=== PATIENT | male | born 1990 | race Caucasian/White ===

== ENCOUNTER 2018-11-29 21:54 | Emergency (ER) | payer SELFPAY ==
[2018-11-29] MEDS ORDERED: Tetracaine HCl/PF 0.5% 4 ML Bottle EYEBOTH ONE (22:10)
[2018-11-29] MEDS ORDERED: Albuterol/Ipratropium 3.0-0.5 MG/3 ML Neb Soln NEB ONE (22:10)
[2018-11-29] MEDS ORDERED: methylPREDNISolone Sodium Succinate 125 MG/2 ML SDV IM ONE (22:11)
--- NOTE | 2018-11-29 22:20 | EDM.PDOC ---
ED HPI GENERAL MEDICAL PROBLEM - General Chief Complaint: ENT Problem Stated Complaint: Cough Time Seen by Provider: 11/29/18 21:57 Source of Information: Reports: Patient History Limitations: Reports: No Limitations - History of Present Illness INITIAL COMMENTS - FREE TEXT/NARRATIVE: HISTORY AND PHYSICAL: History of present illness: Patient is a 27-year-old male who presents to the ED today with concern of a cough 2 weeks. Patient states he does smoke about 1.5 packs of cigarettes a day and does admit to drinking daily. He states that he isn't having issues with getting his contacts out of his eyes and states that he lost his right contact. Patient states he knows his left contact is in but he has been unable to get them out. Patient states he has been pinching squeezing his eyes to try to get them out but started having pain so stopped doing this over the past day. Patient denies any other symptoms or concerns or any health history. Patient denies fever, chills, chest pain, shortness of breath. Denies headache, neck stiff ness, change in vision, syncope, or near syncope. Denies nausea, vomiting, abdominal pain, diarrhea, constipation, or dysuria. Has not noted any blood in urine or stool. Patient has been eating and drinking appropriately. Review of systems: As per history of present illness and below otherwise all systems reviewed and negative. Past medical history: As per history of present illness and as reviewed below otherwise noncontributory. Surgical history: As per history of present illness and as reviewed below otherwise noncontributory. Social history: See social history for further information Family history: As per history of present illness and as reviewed below otherwise noncontributory. Physical exam: General: Patient is alert, oriented, and in no acute distress. Patient sitting comfortably on exam table. HEENT: Visual acuity intact. Atraumatic, normocephalic, pupils equal and reactive bilaterally, negative for conjunctival pallor or scleral icterus but bilateral sclera are severely erythematous with multiple subconjunctival hemorrhages bilaterally, no corneal abrasions, there is no contact in the right eye but contact present in the left which was removed, no other foreign bodies of the eyes, mucous membranes moist, TMs normal bilaterally, throat clear, neck supple, nontender, trachea midline. No drooling or trismus noted. No meningeal signs. No hot potato voice noted. Lungs: Diffuse wheezing to auscultation throughout all lung hernandez, breath sounds equal bilaterally, chest nontender. Dry, tight spasmatic cough throughout exam. Heart: S1S2, regular rate and rhythm without overt murmur Abdomen: Soft, nondistended, nontender. Negative for masses or hepatosplenomegaly. Negative for costovertebral tenderness. Pelvis: Stable nontender. Genitourinary: Deferred. Rectal: Deferred. Skin: Intact, warm, dry. No lesions or rashes noted. Extremities: Atraumatic, negative for cords or calf pain. Neurovascular unremarkable. Neuro: Awake, alert, oriented. Cranial nerves II through XII unremarkable. Cerebellum unremarkable. Motor and sensory unremarkable throughout. Exam nonfocal. Notes: This importance for follow-up with a primary care provider. Voices understanding and is agreeable to plan of care. Denies any further questions or concerns at this time. Diagnostics: Influenza, Strep, CXR, Fluoroscene eye stain Therapeutics: Tetracaine ophthalmic, Solumedrol, Duoneb Prescription: Prednisone, Proair inhaler Impression: Tracheobronchitis Subconjunctival hemorrhages, bilateral Plan: 1. Take medication as prescribed. You can alternate ibuprofen and Tylenol as directed for pain and discomfort. 2. Follow-up with your primary care provider as discussed. Return to the ED as needed and as discussed. Definitive disposition and diagnosis as appropriate pending reevaluation and review of above. - Related Data Allergies Allergy/AdvReac Type Severity Reaction Status Date / Time No Known Allergies Allergy Verified 11/29/18 22:09 Home Meds: Home Meds . [No Known Home Meds] 11/29/18 [History] Past Medical History HEENT History: Reports: None Cardiovascular History: Reports: None Respiratory History: Reports: Asthma Gastrointestinal History: Reports: None Genitourinary History: Reports: None Musculoskeletal History: Reports: None Neurological History: Reports: None Psychiatric History: Reports: Anxiety, Depression Endocrine/Metabolic History: Reports: None Hematologic History: Reports: None Immunologic History: Reports: None Oncologic (Cancer) History: Reports: None Dermatologic History: Reports: None - Infectious Disease History Infectious Disease History: Reports: None - Past Surgical History Head Surgeries/Procedures: Reports: None GI Surgical History: Reports: Appendectomy Social & Family History - Tobacco Use Smoking Status *Q: Current Every Day Smoker Years of Tobacco use: 16 Packs/Tins Daily: 1.5 - Recreational Drug Use Recreational Drug Use: No ED ROS GENERAL - Review of Systems Review Of Systems: ROS reveals no pertinent complaints other than HPI. ED EXAM, GENERAL - Physical Exam Exam: See Below (See dictation) Course - Vital Signs Last Recorded V/S: Last Vital Signs Temp 97.1 F 11/29/18 22:07 Pulse 97 11/29/18 22:07 Resp 20 11/29/18 22:07 BP 146/84 H 11/29/18 22:07 Pulse Ox 99 11/29/18 22:07 - Orders/Labs/Meds Orders: Active Orders 24 hr Category Date Time Status Communication Order [RC] STAT Care 11/29/18 22:31 Active RT Aerosol Therapy [RC] ASDIRECTED Care 11/29/18 22:11 Active CULTURE STREP A CONFIRMATION [RM] Stat Lab 11/29/18 22:04 Results STREP SCRN A RAPID W CULT CONF [RM] Stat Lab 11/29/18 22:04 Results Meds: Medications Discontinued Medications Generic Name Dose Route Start Last Admin Trade Name Erica PRN Reason Stop Dose Admin Albuterol/Ipratropium 3 ml 11/29/18 22:10 11/29/18 22:15 Duoneb 3.0-0.5 Mg/3 Ml NEB 11/29/18 22:11 3 ml ONETIME ONE Administration Methylprednisolone Sodium Succinate 125 mg 11/29/18 22:11 11/29/18 22:15 Solu-Medrol IM 11/29/18 22:12 125 mg ONETIME ONE Administration Tetracaine HCl 1 ml 11/29/18 22:10 11/29/18 22:15 Tetracaine 0.5% Steri-Unit Radha EYEBOTH 11/29/18 22:11 4 drop ASDIRECTED ONE Administration Departure - Departure Time of Disposition: 23:34 Disposition: Home, Self-Care 01 Clinical Impression: Subconjunctival hemorrhage of both eyes, Tracheobronchitis - Discharge Information Referrals: PCP,None [Primary Care Provider] - Forms: ED Department Discharge Additional Instructions: The following information is given to patients seen in the emergency department who are being discharged to home. This information is to outline your options for follow-up care. We provide all patients seen in our emergency department with a follow-up referral. The need for follow-up, as well as the timing and circumstances, are variable depending upon the specifics of your emergency department visit. If you don't have a primary care physician on staff, we will provide you with a referral. We always advise you to contact your personal physician following an emergency department visit to inform them of the circumstance of the visit and for follow-up with them and/or the need for any referrals to a consulting specialist. The emergency department will also refer you to a specialist when appropriate. This referral assures that you have the opportunity for follow-up care with a specialist. All of these measure are taken in an effort to provide you with optimal care, which includes your follow-up. Under all circumstances we always encourage you to contact your private physician who remains a resource for coordinating your care. When calling for follow-up care, please make the office aware that this follow-up is from your recent emergency room visit. If for any reason you are refused follow-up, please contact the [facility] Emergency Department at and asked to speak to the emergency department charge nurse. [facility] [address] [place] [address] [address] 1. Take medication as prescribed. You can alternate ibuprofen and Tylenol as directed for pain and discomfort. 2. Follow-up with your primary care provider as discussed. Return to the ED as needed and as discussed. - My Orders Last 24 Hours: My Active Orders 11/29/18 22:04 CULTURE STREP A CONFIRMATION [RM] Stat STREP SCRN A RAPID W CULT CONF [RM] Stat 11/29/18 22:11 RT Aerosol Therapy [RC] ASDIRECTED 11/29/18 22:31 Communication Order [RC] STAT - Assessment/Plan Last 24 Hours: My Active Orders 11/29/18 22:04 CULTURE STREP A CONFIRMATION [RM] Stat STREP SCRN A RAPID W CULT CONF [RM] Stat 11/29/18 22:11 RT Aerosol Therapy [RC] ASDIRECTED 11/29/18 22:31 Communication Order [RC] STAT
--- NOTE | 2018-11-29 23:12 | CR ---
INDICATION: Shortness of breath; cough for 2 weeks TECHNIQUE: Chest 2 views. COMPARISON: None. FINDINGS: Cardiovascular and mediastinum: Heart size and vasculature are normal in caliber and appearance. Mediastinum is within normal limits. Lungs and pleural spaces: Lungs are clear. No sign of infiltrate or mass. No sign of pleural effusion. No pneumothorax. Bones and soft tissues: No significant findings. IMPRESSION: Unremarkable chest. Dictated by: Donte Delarosa MD @ 11/29/2018 23:11:34 (Electronically Signed)
== END 2018-11-29 23:42 | disposition home or self-care (01) ==
LOC: MW.ED 21:54
DX: J40 Bronchitis, not specified as acute or chronic (principal); H11.33 Conjunctival hemorrhage, bilateral; J45.909 Unspecified asthma, uncomplicated; F17.210 Nicotine dependence, cigarettes, uncomplicated
CPT/HCPCS: 71046; 87081; 87804; 87880; 96372; 99284; J2930; 99283; J7620-GY